=== PATIENT | female | born 1990 | race African-American/Black ===

== ENCOUNTER 2020-01-06 16:57 | Emergency (ER) | payer OTHER, SELFPAY ==
[2020-01-06 17:02] VITALS: BP 146/80; PULSE 92; RESP 12; TEMP 36.1; O2SAT 99
--- NOTE | 2020-01-06 17:07 | ED.EAR ---
HPI - Ear Problem General Chief complaint: Ear Stated complaint: ear ache Time Seen by Provider: 01/06/20 17:06 Source: patient Mode of arrival: ambulatory Limitations: no limitations History of Present Illness HPI Narrative: Patient is a 29-year-old previously healthy female who presents for evaluation of left ear pain. Patient reports pain over the past week which is dull, aching in nature with discharge coming from the ear. No bleeding coming from the ear. She reports subjective fever yesterday. No neck pain or vomiting. No redness of the ear or swelling of the face. Patient states she does not have any sore throat, runny nose, loss of sense of taste or smell. No other pain. Patient has not been taking any antibiotics. She does state that she put some tea tree oil into her ear last night without improvement in her symptoms. Related Data Allergies Allergy/AdvReac Type Severity Reaction Status Date / Time No Known Allergies Allergy Verified 01/06/20 17:04 Review of Systems Review of Systems: Narrative: CONSTITUTIONAL: Reports subjective fever and chills EYES: Denies visual changes, redness, or discharge. ENT: Denies rhinorrhea, congestion, sore throat, reports left ear pain CARDIOVASCULAR: Denies chest pain RESPIRATORY: Denies cough GASTROINTESTINAL: Denies abdominal pain GENITOURINARY: Denies dysuria or hematuria. SKIN: Denies rash or itching. NEUROLOGIC: Denies headache PMFSH Past Medical History Medical History (Updated 01/06/20 @ 17:27 by Sussy Barrett MD) No pertinent past medical history Social History Social History (Updated 01/06/20 @ 17:27 by Sussy Barrett MD) Smoking status: Current every day smoker Tobacco type: cigarettes Substance use: never Living arrangements: with family Gender identity (if verbalized by the patient): Female Exam Narrative: Exam Narrative: GENERAL: Awake, alert, conversant HEAD: Normocephalic, atraumatic. EYES: PERRLA and EOMI. ENT: Nares clear, no rhinorrhea or epistaxis. Mucous membranes moist. Uvula is midline. No erythema of the oropharynx. Tonsils appear normal without erythema or edema. Right tympanic membrane is normal with intact light reflex, no bulging. Left tympanic membrane with evidence of serous effusion, edema of the external ear canal, no evidence of perforation, no erythema of the pinna, no mastoid tenderness NECK: Supple. No cervical or anterior lymphadenopathy. CHEST: No respiratory distress, breathing even and non labored HEART: Regular rate, sinus rhythm ABDOMEN:Non distended, non tender EXTREMITIES: Normal range of motion. No edema. SKIN: Warm, dry, no rash. NEURO:No focal deficits. Alert and oriented x3 Course Vital Signs Vital signs: Vital Signs Temperature 36.1 C L 01/06/20 17: Pulse Rate 92 01/06/20 17:02 Respiratory Rate 12 01/06/20 17:02 Blood Pressure 146/80 H 01/06/20 17:02 Pulse Oximetry 99 01/06/20 17:02 Temperature 36.1 C L 01/06/20 17: Pulse Rate 92 01/06/20 17:02 Respiratory Rate 12 01/06/20 17:02 Blood Pressure 146/80 H 01/06/20 17:02 Pulse Oximetry 99 01/06/20 17:02 Medical Decision Making MDM Narrative Medical decision making narrative: Patient presented for evaluation of left ear pain. At the time of assessment, ABCs are intact and vital signs are stable. Patient does not have any signs or symptoms of mastoiditis, does have evidence of otitis media with serous effusion posterior to the tympanic membrane, as well as some edema of the external ear canal. Given both symptoms, will treat with oral antibiotics as well as otic suspension. Patient given short dose of pain medication to take at home. She was discharged home with PCP follow-up. Differential Diagnosis Differential Diagnosis: Otitis externa, otitis media Medical Records Medical records reviewed: Yes I reviewed the patient's medical records. Vital Signs Vital Signs: Vital Signs Temperature 36.1 C L
[2020-01-06 17:30] VITALS: BP 140/67; PULSE 80; RESP 12; O2SAT 99
== END 2020-01-06 17:30 | disposition home or self-care (01) ==
PROVIDERS: Emergency Provider Emergency Medicine; PCP Family Medicine
DX: H65.02 Acute serous otitis media, left ear (principal); H60.392 Other infective otitis externa, left ear; F17.210 Nicotine dependence, cigarettes, uncomplicated
CPT/HCPCS: 99283

== ENCOUNTER 2020-01-14 12:15 | Outpatient (NON) | payer OTHER, SELFPAY ==
[2020-01-14 23:24] LABS: SARS-CoV-2 RNA PCR Negative
== END 2020-01-14 12:16 ==
PROVIDERS: PCP Family Medicine; Visit Provider Family Medicine
DX: Z20.828 Contact with and (suspected) exposure to other viral communicable diseases (principal); R09.89 Other specified symptoms and signs involving the circulatory and respiratory systems
CPT/HCPCS: 87635; C9803; U0003

== ENCOUNTER 2020-08-11 10:41 | Emergency (ER) | payer OTHER, SELFPAY ==
--- NOTE | ~2020-08-11 | XR_ITS ---
EXAMINATION: XR foot RT min 3V DATE: 08/11/2020 11:05 INDICATION: Dorsal right foot pain TECHNIQUE: Dorsoplantar, two oblique and lateral views of the right foot were obtained. COMPARISON: None. FINDINGS: Alignment is normal. Normal variant triangular peripherally corticated accessory os supra naviculare. No fracture. Joint spaces are normal. Soft tissue swelling over the dorsolateral aspect of the midfo ot. IMPRESSION: 1. No osseous abnormality. Reviewed, dictated and finalized at location A. IMPRESSION: 1. No osseous abnormality.
--- NOTE | 2020-08-11 10:47 | ED.LOWEXIN ---
HPI - Extremity Injury (Lower) General Chief Complaint: Extremity Injury, Lower Stated Complaint: Right foot pain Time Seen by Provider: 08/11/20 10:47 Source: patient and RN notes reviewed Mode of arrival: ambulatory Limitations: no limitations History of Present Illness HPI Narrative: 29 yo female presents to the [facility] with Complaints of right dorsal foot pain since Saturday, 3 days ago. States that she was at a trampoline park when she landed wrong on her right foot and feels that she landed on the top of her foot with her foot pointed backwards. Bruising swelling and tenderness noted to the dorsal aspect. Has tried an Jose Angel wrap and rice therapy with minimal to no relief. Has full range of motion. Sensation intact in all 5 toes and lateral and medial aspect of the foot. Full range of motion of the ankle. Related Data Home Medications Medication Instructions Recorded Confirmed No Home Medications 08/11/20 08/11/20 Allergies Allergy/AdvReac Type Severity Reaction Status Date / Time No Known Allergies Allergy Verified 08/11/20 10:47 Review of Systems Review of Systems: All systems reviewed & are unremarkable except as noted in HPI and below Constitutional: Constitutional: Reports no additional constitutional complaints, Denies chills and Denies fever(s) Eyes: Eyes: Reports no additional eye complaints Cardiovascular: Cardiovascular: Reports no additional cardiovascular complaints Respiratory: Respiratory: Reports no additional respiratory complaints Gastrointestinal: Gastrointestinal: Reports no additional gastrointestinal complaints Musculoskeletal: Musculoskeletal: Reports as per HPI and Denies joint swelling Comments: Dorsal aspect right foot pain Integumentary/Breasts: Skin/Breast: Reports system reviewed and no additional complaints, except as docu and Denies rash Neurologic: Reports system reviewed and no additional complaints, except as documented, Denies dizziness, Denies headache(s), Denies focal weakness, Denies numbness and Denies weakness Psychiatric: Psychiatric: Reports no additional psychiatric complaints Allergic/Immunologic: Allergic/Immunologic: Reports no additional allergic/immunologic complaints [facility] Past Medical History Medical History (Updated 08/11/20 @ 11:20 by Essence Vieyra) No pertinent past medical history Social History Social History Smoking status: Current every day smoker Tobacco type: cigarettes Substance use: never Gender identity (if verbalized by the patient): Female Comments At the time of my signature, I reviewed and agree with the nursing past medical, surgical, social, and family history. There is no relevant family history pertinent to the patient complaint. Exam Const: General: healthy appearing, no acute distress and alert Nutritional Appearance: well nourished and obese Orientation/consciousness: patient oriented x3 Limitations: no limitations HENMT: Head: normal to inspection Neck: Neck: normal visual inspection, no lymphadenopathy and no meningeal signs Chest: Chest palpation & inspection: normal inspection of the chest Resp: Effort & Inspection: normal respiratory effort and no use of accessory muscles Auscultation: clear to auscultation bilaterally, no rales, no rhonchi and no wheezes Cardio: Rate: regular rate Other: Positive pedal pulses : General: Yes no CVA tenderness Back/Spine/Pelvis: Back: no CVA tenderness Skin: General skin exam: normal color Rashes: no rashes Wounds: no wounds Neuro: General: patient oriented x3, moves all extremities, no meningeal signs and no focal motor deficits Speech: normal speech Gait exam (Neuro): Normal gait present Extrem: General: normal to inspection Right lower extremity: foot Details: normal capillary refill, tenderness Location: of the dorsal foot (Midfoot), toes with normal ROM, no edema, ecchymosis (Dorsal aspect midfoot) an
[2020-08-11 10:49] VITALS: BP 116/72; PULSE 76; RESP 16; TEMP 36.4; O2SAT 100
== END 2020-08-11 11:24 | disposition home or self-care (01) ==
PROVIDERS: Emergency Provider Nurse Practitioner; PCP Family Medicine
DX: S93.601A Unspecified sprain of right foot, initial encounter (principal); X50.9XXA Other and unspecified overexertion or strenuous movements or postures, initial encounter; Y93.44 Activity, trampolining; F17.210 Nicotine dependence, cigarettes, uncomplicated
CPT/HCPCS: 73630; 99213; G0463

== ENCOUNTER 2020-10-08 12:44 | Emergency (ER) | payer OTHER, SELFPAY ==
--- NOTE | ~2020-10-08 | XR_ITS ---
XR lumbar spine 2-3V DATE: 10/08/2020 15:28 INDICATION: Lower back pain after basketball injury in 2012 TECHNIQUE: AP, lateral, coned lateral lumbosacral views COMPARISON: None FINDINGS: Normal alignment of lumbar spine. No fracture or bone destruction. The lumbar pedicles are intact. No spondylolisthesis. The lumbar and lumbosacral interspaces are well preserved. The sacroili ac joints appear normal. IMPRESSION: Normal examination of the lumbar spine Reviewed, dictated and finalized at location A.
[2020-10-08 12:50] VITALS: BP 141/98; PULSE 85; RESP 18; TEMP 36.5; O2SAT 100
[2020-10-08 13:01] VITALS: PULSE 88; RESP 20; O2SAT 100
--- NOTE | 2020-10-08 15:46 | ED.BACK ---
HPI - Back Pain/Injury General Chief Complaint: Back Pain/Injury <Zion Stone PA-C - Last Filed: 10/08/20 15:54> Stated Complaint: low back pain <SHIV Frye Last Filed: 10/08/20 15:54> Time Seen by Provider: 10/08/20 13:02 <SHIV Frye Last Filed: 10/08/20 15:54> Source: patient <SHIV Frye Last Filed: 10/08/20 15:54> Mode of arrival: ambulatory <SHIV Frye Last Filed: 10/08/20 15:54> Limitations: no limitations <SHIV Frye Last Filed: 10/08/20 15:54> History of Present Illness HPI Narrative: Patient presents with chief complaint of back pain that has been waxing waning in intensity since 2011. Patient states she did talk to her primary care regarding the issue and has been told that she may require physical therapy. Patient denies recent falls but states that the pain has increased and feels sharp in nature. She denies loss of bowel or bladder function or saddle paresthesias. Patient denies changes in bowel control. Patient reports that she feels a swelling over the area. She reports pain intensifies with any movement. Patient is able to ambulate. She presents also concerned with changes to a mole on the posterior aspect of her left thigh that she wants to have evaluated. <Zion Stone PA-C - Last Filed: 10/08/20 15:54> Related Data Allergies/Adverse Reactions: Allergies Allergy/AdvReac Type Severity Reaction Status Date / Time No Known Allergies Allergy Verified 10/08/20 13:03 <SHIV Frye Last Filed: 10/08/20 15:54> Review of Systems Review of Systems: CONSTITUTIONAL: Denies fever, chills, or sweats. EYES: Denies visual changes, redness, or discharge. ENT: Denies rhinorrhea, congestion, sore throat, or otalgia. CARDIOVASCULAR: Denies chest pain, palpitations, or edema. RESPIRATORY: Denies cough or dyspnea. GASTROINTESTINAL: Denies abdominal pain, nausea, vomiting, or diarrhea. GENITOURINARY: Denies dysuria or hematuria. SKIN: Reports skin changes denies rash or itching. MUSCULOSKELETAL: Reports back pain, denies joint pain, or myalgia. NEUROLOGIC: Denies headache, numbness, dizziness, or weakness. PSYCHIATRIC: Denies anxiety or depression. <Zion Stone PA-C - Last Filed: 10/08/20 15:54> PMFSH Past Medical History Medical History: Medical History (Updated 10/08/20 @ 15:51 by Zion Stone PA-C) No pertinent past medical history <Zion Stone PA-C - Last Filed: 10/08/20 15:54> Social History Social History: Social History Smoking status: Current every day smoker Tobacco type: cigarettes Substance use: never Gender identity (if verbalized by the patient): Female <Zion Stone PA-C - Last Filed: 10/08/20 15:54> Exam Narrative: GENERAL: Well-appearing, well-nourished, and in no acute distress. Obese HEAD: Normocephalic, atraumatic. EYES: PERRLA and EOMI. NECK: Supple. Range of motion intact CHEST: Clear to auscultation. No respiratory distress. No wheezes rales or rhonchi HEART: Regular rate and rhythm.Normal peripheral pulses. BACK: Patient reports palpation to lower lumbar spine. Patient reports pain with flexion and rotation. Sensation and range of motion intact in lower extremities. Weakness not appreciated. EXTREMITIES: Normal range of motion. No edema. SKIN: Brown skin growths of posterior aspect of patient's left thigh. There is no bleeding or drainage. It is rough in texture and raised. Warm, dry, no rash. NEURO: No focal deficits. Alert and oriented x3. PSYCH: Normal mood and affect. <Zion Stone PA-C - Last Filed: 10/08/20 15:54> Course Vital Signs Vital signs: Vital Signs Temperature 97.7 F 10/08/20 12:50 Pulse Rate 85 10/08/20 12:50 Respiratory Rate 18 10/08/20 12:50 Blood Pressure 141/98 H 10/08/20 12:50 Pulse Oximetry 100 10/08/20 12:50 Temperatu
[2020-10-08 16:05] VITALS: BP 132/80; PULSE 80; RESP 20; TEMP 36.8; O2SAT 100
== END 2020-10-08 16:05 | disposition home or self-care (01) ==
PROVIDERS: Emergency Provider General Practice; PCP Family Medicine
DX: S39.012A Strain of muscle, fascia and tendon of lower back, initial encounter (principal); R23.9 Unspecified skin changes; F17.210 Nicotine dependence, cigarettes, uncomplicated; X58.XXXA Exposure to other specified factors, initial encounter
CPT/HCPCS: 72100; 81025; 99283

== ENCOUNTER 2021-03-02 08:25 | Emergency (ER) | payer OTHER, SELFPAY ==
[2021-03-02 08:35] VITALS: BP 116/69; PULSE 70; RESP 16; TEMP 36.2; O2SAT 99
--- NOTE | 2021-03-02 09:17 | ED.FEMALEGU ---
HPI - Female Genitourinary General Chief complaint: Urogenital-Female Stated complaint: irregular cycle Time Seen by Provider: 03/02/21 08:53 Source: patient and RN notes reviewed Mode of arrival: ambulatory Limitations: no limitations History of Present Illness HPI Narrative: Patient presents today complaining of an extended menstrual period. She has had some menstrual bleeding since 02/11/2021. States the bleeding waxes and wanes, and almost disappeared on 02/28/2021, then returned again. States she changes her thin pad every 2 hours or so. She occasionally has clots that are quarter size. Denies dizziness, lightheadedness. Reports she does have some cramping associated with her bleeding. States that her primary care provider just left the office permanently and she does not currently have an HAIR BOILER OPERATOR. No chance of , as she is homosexual. States she does have a known vaginal cyst that she needs to get surgically removed. MD elicited complaint: vaginal bleeding Related Data Allergies Allergy/AdvReac Type Severity Reaction Status Date / Time No Known Allergies Allergy Verified 03/02/21 09:01 Review of Systems Review of Systems: CONSTITUTIONAL: Denies body aches, fever, chills, or sweats. EYES: Denies visual changes, redness, or discharge. ENT: Denies rhinorrhea, congestion, sore throat, or otalgia. CARDIOVASCULAR: Denies chest pain, palpitations, or edema. RESPIRATORY: Denies cough or dyspnea. GASTROINTESTINAL: Denies abdominal pain, nausea, vomiting, or diarrhea. GENITOURINARY: Denies dysuria or hematuria.+ Vaginal bleeding SKIN: Denies rash, itching, or wounds. MUSCULOSKELETAL: Denies back pain, joint pain, or myalgia. NEUROLOGIC: Denies headache, numbness, tingling, or weakness. PSYCH: Denies depression or anxiety. [facility] Past Medical History Medical History No pertinent past medical history Social History Social History Smoking status: Current every day smoker Tobacco type: cigarettes Substance use: never Gender identity (if verbalized by the patient): Female Comments At time of signature, I have reviewed and agree with nursing past medical, surgical, social and family history unless otherwise noted. Please see nursing chart for further information. There is no relevant family history pertinent to the presenting complaint Exam Narrative: GENERAL: Well-appearing, well-nourished, and in no acute distress. HEAD: Normocephalic, atraumatic. EYES: EOMI. PERRL. No redness or drainage. Conjunctivae normal. ENT: Mucous membranes pink and moist. Gingiva pink. NECK: Normal AROM. Supple. No lymphadenopathy. CHEST: No respiratory distress. : deferred. EXTREMITIES: Normal range of motion. No edema. SKIN: Warm, dry, no rash. Capillary refill normal. Normal skin turgor. NEURO: No focal deficits. Alert and oriented x3. Gait steady. PSYCH: Normal affect. No signs of depression or anxiety. Course Course Emergency Course: Discussed with patient that she needs to follow-up with an HAIR BOILER OPERATOR. At this time I do not believe she needs to go to the ER for evaluation, but anticipatory guidance has been given. Contact information for on-call HAIR BOILER OPERATOR has been given. Level of Care: Express Care Visit Vital Signs Vital signs: Vital Signs Temperature 97.2 F L 03/02/21 08:35 Pulse Rate 70 03/02/21 08:35 Respiratory Rate 16 03/02/21 08:35 Blood Pressure 116/69 03/02/21 08:35 Pulse Oximetry 99 03/02/21 08:35 Temperature 97.2 F L 03/02/21 08:35 Pulse Rate 70 03/02/21 08:35 Respiratory Rate 16 03/02/21 08:35 Blood Pressure 116/69 03/02/21 08:35 Pulse Oximetry 99 03/02/21 08:35 Reviewed MDM - Female Genitourinary Differential Diagnosis Differential diagnosis: Likely other (Dysfunctional uterine bleeding) Critical Care Time Critical Care Time Critical Care
== END 2021-03-02 09:30 | disposition home or self-care (01) ==
PROVIDERS: Emergency Provider Nurse Practitioner
DX: N92.6 Irregular menstruation, unspecified (principal); F17.210 Nicotine dependence, cigarettes, uncomplicated
CPT/HCPCS: 99211; G0463

== ENCOUNTER 2021-03-10 06:54 | Emergency (ER) | payer OTHER, SELFPAY ==
--- NOTE | ~2021-03-10 | US_ITS ---
EXAMINATION: US right upper quadrant EXAM DATE: 03/10/2021 08:11 INDICATION: RUQ pain MID ABD PAIN . TECHNIQUE: Multiple grayscale and Doppler images of the abdomen right upper quadrant were obtained (b y a technologist who performed the scan) and subsequently reviewed. There is no prior study for lamont cabrera. FINDINGS: The pancreatic head and body are normal in appearance. The pancreatic tail is not visualized. The l iver has normal echogenicity and contour. There are no focal liver lesions identified. There is no evidence of intrahepatic biliary duct dilation. Portal venous flow was seen in the hepatopedal, nor mal direction and has normal Doppler waveform. No right-sided hydronephrosis. Common bile duct measures 5 mm, which is normal. The gallbladder wall is normal in thickness, with ex pected amount of distention. No sonographic evidence of pericholecystic fluid. Single gallstone stephan ntified measuring about 7 mm in size Technologist performing exam reports patient did not demonstrat e sonographic Pryor's sign. Please note that this sign is less reliable in patients who have receiv ed pain medication. IMPRESSION: Cholelithiasis. Reviewed, dictated and finalized at location A. 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
--- NOTE | ~2021-03-10 | US_ITS ---
EXAMINATION: US pelvic complete w TV EXAM DATE: 03/10/2021 08:15 INDICATION: Cramping/bleeding. Vaginal bleeding. TECHNIQUE: Pelvic transabdominal and transvaginal sonogram was performed. There are multiple graysca le and Doppler images available for interpretation. There is no prior study for comparison. FINDINGS: Uterus measures 10.7 x 8.0 x 6.8 cm, with at least 2 large fibroids identified measuring 7 and 6 cm. Endometrial stripe measures 10 mm, within normal limits. There is no free pelvic fluid. Right adnexa: The ovary measures 3.4 x 1.4 x 1.4 cm and is morphologically normal. Ovarian vascular f low confirmed. Left adnexa: The ovary measures 3.1 x 2.4 x 2.1 cm and is morphologically normal. Ovarian vascular fl ow confirmed. IMPRESSION: Large fibroids. Reviewed, dictated and finalized at location A. 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
[2021-03-10 06:58] VITALS: BP 136/63; PULSE 92; RESP 18; TEMP 36.3; O2SAT 100
[2021-03-10 07:48] LABS: Basophils Absolute Auto 0.1 K/mm3 (0.0-0.1); Basophils Percent Auto 0.7 % (0.2-1.2); Eosinophils Absolute Auto 0.2 K/mm3 (0-0.3); Eosinophils Percent Auto 2.1 % (0-4.4); Hemoglobin 9.8 g/dL (12.0-15.0); Immature Granulocyte Absolute 0.01 K/mm3 (0.00-0.031); Immature Granulocyte Percent A 0.1 % (0-0.5); Lymphocytes Absolute Auto 2.33 K/mm3 (0.9-3.2); Lymphocytes Percent Auto 32.5 % (18.3-44.2); Mean Corpuscular HGB Conc 32.7 g/dl (32-36); Mean Corpuscular Hemoglobin 30.7 pg (26-34); Mean Platelet Volume 10.2 fl (7.4-10.4); Monocytes Absolute Auto 0.6 K/mm3 (0.1-0.6); Monocytes Percent Auto 7.9 % (2.6-8.5); Neutrophils Absolute Auto 4.1 K/mm3 (1.3-6.7); Neutrophils Percent Auto 56.7 % (45.5-73.1); Platelet Count Result 345 k/mm3 (150-375); Red Blood Count 3.19 M/mm3 (4.2-5.4); Red Cell Distribution Width 13.1 % (11.5-14.5); White Blood Count 7.2 K/mm3 (4.5-10.0)
[2021-03-10 07:55] LABS: Add Urine Microscopic? YES; Appearance Urine Cloudy (Clear); Bilirubin Urine Negative (Negative); Blood Urine 3+ (Negative); Color Urine Red (Yellow); Glucose Urine UA Negative (Negative); Ketones Urine Negative (Negative); Leukocyte Esterase Ur Negative LEU/UL (Negative); Mucus Urine Rare /lpf; Nitrate Urine Negative (Negative); Protein Urine 1+ mg/dL (Negative); RBC Urine >75 /hpf (0-2); Specific Grav Ur 1.015 (1.001-1.035); Squamous Epithelial Cell Urine Rare /hpf (Few); Urobilinogen Urine Negative mg/dL (<2.0)
--- NOTE | 2021-03-10 07:58 | ED.FEMALEGU ---
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 Reports it waxes and wanes in intensity. She is going through a pad every hour to 2 hours. Ongoing for 28 days. She reports she was seen in urgent care and referred to a business analysis professional but they did not accept her insurance and she has not tried to contact any other business analysis professional. She reports occasionally she will get dizzy while at work. No loss of consciousness. Denies urinary frequency urgency or dysuria. No vaginal discharge or pelvic pain. Just cramping that comes with it.. Patient also reports that she is having some upper abdominal discomfort that she is concerned could be related to abdominal mesh. Its not associate with eating or drinking nor is it associated with her menstrual cycle. She is found no alleviating factors. Worsens with palpation and movement. Related Data Allergies Allergy/AdvReac Type Severity Reaction Status Date / Time No Known Allergies Allergy Verified 03/02/21 09:01 Review of Systems Review of Systems: All systems reviewed & are unremarkable except as noted in HPI and below Constitutional: Constitutional: Denies chills and Denies fatigue ENT: Denies nasal congestion and Denies sore throat Cardiovascular: Cardiovascular: Denies chest pain, Denies rapid heart rate and Denies radiating jaw, neck or arm pain Respiratory: Respiratory: Denies cough Gastrointestinal: Gastrointestinal: Reports abdominal pain, Denies diarrhea, Denies nausea and Denies vomiting Genitourinary: Genitourinary: Reports abnormal vaginal bleeding, Denies hematuria, Denies nocturia, Denies dysuria and Denies vaginal discharge Neurologic: Reports dizziness, Reports headache(s), Denies focal weakness and Denies numbness PMFSH Past Medical History Medical History (Updated 03/10/21 @ 09:04 by Edgar Long MD) No pertinent past medical history Surgical History Surgical History (Updated 03/10/21 @ 08:02 by Edgar Long MD) H/O hernia repair Social History Social History Smoking status: Current every day smoker Tobacco type: cigarettes Substance use: never Gender identity (if verbalized by the patient): Female Exam Narrative: GENERAL: Well-appearing, well-nourished, and in no acute distress. HEAD: Normocephalic, atraumatic. CHEST: Clear to auscultation. No respiratory distress. HEART: Regular rate and rhythm. N Normal peripheral pulses. ABDOMEN: Soft, mild epigastric and right upper quadrant tenderness, nondistended, normal active bowel sounds. : Normal external genitalia. Cervix with a abnormal cystic structure that is 3 cm x 2 cm protruding. No hemorrhage. No discharge. EXTREMITIES: Normal range of motion. No edema. SKIN: Warm, dry, no rash. NEURO: Alert and oriented x3. PSYCH: Normal mood and affect. Course Course Emergency Course: Patient informed of results. Will start on iron. Recommend follow-up with gynecology for further evaluation. Educated on fibroids and possibility of needing surgery. Patient verbalized understanding. Also discussed low-fat diet given gallstones. No signs of cholecystitis Vital Signs Vital signs: Vital Signs Temperature 97.4 F L 03/10/21 06:58 Pulse Rate 92 03/10/21 06:58 Respiratory Rate 18 03/10/21 06:58 Blood Pressure 136/63 03/10/21 06:58 Pulse Oximetry 100 03/10/21 06:58 Temperature 97.4 F L 03/10/21 06:58 Pulse Rate 73 03/10/21 08:20 Respiratory Rate 18 03/10/21 06:58 Blood Pressure 126/76 03/10/21 08:20 Pulse Oximetry 100 03/10/21 06:58 MDM - Female Genitourinary Lab Data Result diagrams: 03/10/21 07:36 03/10/21 07:36 Labs: Lab Results 03/10/21 03/10/21 03/10/21 Range/
[2021-03-10 08:11] LABS: Alanine Aminotransferase 11 U/L (4-35); Albumin Level 3.7 g/dL (3.5-5.1); Alkaline Phosphatase 51 U/L (38-126); Anion Gap 5 mmol/L (8-16); Aspartate Amino Transferase 21 U/L (14-36); Bilirubin,Total 0.3 mg/dL (0.2-1.3); Blood Urea Nitrogen 12 mg/dL (7-17); Calcium 8.3 mg/dL (8.4-10.2); Carbon Dioxide 26 mmol/L (22-30); Chloride 107 mmol/L (98-107); Estimated CRCL calculation 119 ml/min; Estimated Glomerular Filt Rate > 60; Glucose 105 mg/dL (65-110); Lipase 41 U/L (23-300); Potassium 4.1 mmol/L (3.4-5.0); Sodium 138 mmol/L (137-145)
[2021-03-10 08:18] VITALS: BP 107/61; BP 127/81; PULSE 69; PULSE 84
[2021-03-10 08:20] VITALS: BP 126/76; PULSE 73
[2021-03-10] MEDS: KETOROLAC 30 MG/ML VIAL (*BKC) IV PUSH (08:23)
--- NOTE | 2021-03-10 08:46 | PC.NURSE ---
Pelvic set up completed, physician completed pelvic assessment, RN present during assessment, pt tolerated well.
[2021-03-10 09:18] VITALS: BP 103/72; PULSE 76; RESP 16; O2SAT 100
== END 2021-03-10 09:19 | disposition home or self-care (01) ==
PROVIDERS: Emergency Provider Emergency Medicine
DX: D25.9 Leiomyoma of uterus, unspecified (principal); D64.9 Anemia, unspecified; K80.20 Calculus of gallbladder without cholecystitis without obstruction; F17.210 Nicotine dependence, cigarettes, uncomplicated
CPT/HCPCS: 36415; 76705; 76830; 76856; 80053; 81001; 81025; 83690; 85025; 96374; 99284; J1885

== ENCOUNTER 2021-06-15 19:54 | Emergency (ER) | payer OTHER, SELFPAY ==
--- NOTE | 2021-06-15 19:56 | ED.ABDPAIN ---
HPI - Abdominal Pain General Chief Complaint: Abdominal Pain Stated Complaint: Abdominal Pain Time Seen by Provider: 06/15/21 19:56 Source: patient Mode of arrival: ambulatory Limitations: no limitations History of Present Illness HPI narrative: 30-year-old female presents with complaint of abdominal pain, nausea vomiting that started after eating [place] fried [place] last night. Reports that she was sick all night and is now feeling better. Is here for a work note. She has no new urinary symptoms. Afebrile. Has been able to keep down water. All systems reviewed and negative except as noted above. Related Data Allergies Allergy/AdvReac Type Severity Reaction Status Date / Time No Known Allergies Allergy Verified 06/15/21 19:56 Review of Systems Review of Systems: CONSTITUTIONAL: Denies fever, chills, or sweats. EYES: Denies visual changes, redness, or discharge. ENT: Denies rhinorrhea, congestion, sore throat, or otalgia. CARDIOVASCULAR: Denies chest pain, palpitations, or edema. RESPIRATORY: Denies cough or dyspnea. GASTROINTESTINAL: Reports abdominal pain, nausea, vomiting. Denies diarrhea. GENITOURINARY: Denies dysuria or hematuria. SKIN: Denies rash or itching. MUSCULOSKELETAL: Denies back pain, joint pain, or myalgia. NEUROLOGIC: Denies headache, numbness, or weakness. PSYCHIATRIC: Denies anxiety or depression. All other systems reviewed are negative, except as documented in HPI. [facility] Past Medical History Medical History (Updated 06/16/21 @ 00:00 by Juni Farias) No pertinent past medical history Surgical History Surgical History (Updated 03/10/21 @ 08:02 by Edgar Long MD) H/O hernia repair Social History Social History Smoking status: Current every day smoker Tobacco type: cigarettes Substance use: never Gender identity (if verbalized by the patient): Female Comments At time of signature, agree with nursing past medical, surgical, social and family history. There is no relevant family history pertinent to the presenting complaint. Exam Narrative: GENERAL: This is a well-nourished, well-developed patient, in no apparent distress. HEAD: normocephalic, atraumatic. EYES: PERRL. Sclera clear/white. Vision is grossly intact. EARS: External ears normal NOSE: External nose normal NECK: Neck supple, non-tender without lymphadenopathy, masses or thyromegaly. CARDIOVASCULAR: Regular rate and rhythm without murmurs, gallops, or rubs. RESPIRATORY: Clear to auscultation. Breath sounds equal bilaterally. No wheezes, rales, or rhonchi. GASTROINTESTINAL: Abdomen soft, non-tender, nondistended. Bowel sounds are active. No hepato-splenomegaly, or palpable masses. No guarding. SKIN: warm, Dry, intact with no suspicious lesions or rash, good texture and turgor. NEURO: awake, alert, and oriented to person, place and time. There were no obvious focal neurologic abnormalities. EXTREMITIES: Normal range of motion to all extremities. Course Course Level of Care: Express Care Visit Vital Signs Vital signs: Vital Signs Temperature 37.2 C 06/15/21 20:03 Pulse Rate 69 06/15/21 20:03 Respiratory Rate 16 06/15/21 20:03 Blood Pressure 120/81 06/15/21 20:03 Temperature 37.2 C 06/15/21 20:03 Pulse Rate 69 06/15/21 20:03 Respiratory Rate 16 06/15/21 20:03 Blood Pressure 120/81 06/15/21 20:03 Reviewed MDM - Abdominal Pain MDM Narrative Medical decision making narrative: No abdominal tenderness. Nausea and vomiting has resolved. Patient thought that she had food poisoning from [place] but also states that she had gallstones on ultrasound that she had in ER several months ago. Was not aware that fried foods would upset her gallbladder. Patient given discharge instructions for diet changes to make for gallstones. Patient is aware of diagnosis, understands and agrees to treatment plan. Ant
[2021-06-15 20:03] VITALS: BP 120/81; PULSE 69; RESP 16; TEMP 37.2
== END 2021-06-15 20:13 | disposition home or self-care (01) ==
PROVIDERS: Emergency Provider Nurse Practitioner Family
DX: K82.9 Disease of gallbladder, unspecified (principal); F17.200 Nicotine dependence, unspecified, uncomplicated
CPT/HCPCS: 99213; G0463

== ENCOUNTER 2021-07-22 13:20 | Emergency (ER) | payer OTHER, SELFPAY ==
[2021-07-22 13:25] VITALS: BP 121/75; PULSE 79; RESP 18; TEMP 37.7; O2SAT 100
--- NOTE | 2021-07-22 13:26 | ED.ABDPAIN ---
HPI - Abdominal Pain General Chief Complaint: Abdominal Pain Stated Complaint: Abdominal Pain Time Seen by Provider: 07/22/21 13:26 Source: patient, RN notes reviewed and old records reviewed Mode of arrival: ambulatory Limitations: no limitations History of Present Illness HPI narrative: 30-year-old female presents to the [facility] with complaints of generalized abdominal pain for 6 days. Patient has a history of fibroids and gallstones. Was evaluated in February and diagnosed with gallstones. Patient reports trying to work with her primary care provider to get the fibroids and the gallstones taken care of. Next appointment she has is in September. Reports urinary frequency but states that is due to fibroids. Last bowel movement was this morning which she reports is normal Denies any pain currently no nausea or vomiting currently. Requesting a work note Related Data Home Medications Medication Instructions Recorded Confirmed drospirenone (contraceptive) 4 mg 1 tablet PO DAILY 07/22/21 07/22/21 (28) tablet (Slynd) Allergies Allergy/AdvReac Type Severity Reaction Status Date / Time No Known Allergies Allergy Verified 07/22/21 13:22 Review of Systems Review of Systems: All systems reviewed & are unremarkable except as noted in HPI and below Constitutional: Constitutional: Reports no additional constitutional complaints, Denies chills and Denies fever(s) Eyes: Eyes: Reports no additional eye complaints ENT: Reports system reviewed and no additional complaints, except as documented Cardiovascular: Cardiovascular: Reports no additional cardiovascular complaints Respiratory: Respiratory: Reports no additional respiratory complaints Gastrointestinal: Gastrointestinal: Reports as per HPI, Reports abdominal pain, Denies bloating, Denies constipation, Denies heartburn, Denies diarrhea, Denies nausea and Denies vomiting Musculoskeletal: Musculoskeletal: Reports no additional musculoskeletal complaints Integumentary/Breasts: Skin/Breast: Reports system reviewed and no additional complaints, except as docu Neurologic: Reports system reviewed and no additional complaints, except as documented Psychiatric: Psychiatric: Reports no additional psychiatric complaints Allergic/Immunologic: Allergic/Immunologic: Reports no additional allergic/immunologic complaints PMF Past Medical History Medical History (Updated 07/22/21 @ 13:49 by Essence Vieyra APRN) No pertinent past medical history Surgical History Surgical History H/O hernia repair Social History Social History (Reviewed 07/22/21 @ 16:34 by AMANDA Leal Smoking status: Current every day smoker Tobacco type: cigarettes Substance use: never Gender identity (if verbalized by the patient): Female Comments At the time of my signature, I reviewed and agree with the nursing past medical, surgical, social, and family history. There is no relevant family history pertinent to the patient complaint. Exam Const: General: healthy appearing, no acute distress and alert Nutritional Appearance: well nourished and obese Orientation/consciousness: patient oriented x3 Limitations: no limitations HENMT: Head: normal to inspection Ears: external ears normal Eyes: General: appearance normal, both eyes and all related structures Pupils: Equal, round and reactive pupils present Neck: Neck: normal visual inspection, no lymphadenopathy and no meningeal signs Chest: Chest palpation & inspection: normal inspection of the chest Resp: Effort & Inspection: normal respiratory effort and no use of accessory muscles Auscultation: clear to auscultation bilaterally, no crackles, no rales, no rhonchi and no wheezes Cardio: Rate: regular rate Rhythm: regular rhythm GI: GI Palp: Yes Soft to palpation, Yes Tenderness to palpation present (GI) (Generalized), No Guarding due to palpation present (GI), No
== END 2021-07-22 13:52 | disposition home or self-care (01) ==
PROVIDERS: Emergency Provider Nurse Practitioner
DX: R10.84 Generalized abdominal pain (principal); Z87.19 Personal history of other diseases of the digestive system; Z87.42 Personal history of other diseases of the female genital tract; F17.210 Nicotine dependence, cigarettes, uncomplicated
CPT/HCPCS: 81003; 99212; G0463

== ENCOUNTER 2021-08-01 18:30 | Emergency (ER) | payer OTHER, SELFPAY ==
[2021-08-01 18:38] VITALS: BP 124/78; PULSE 87; RESP 16; TEMP 36.3; O2SAT 100
--- NOTE | 2021-08-01 18:46 | ED.FEVER ---
HPI - Fever General Chief Complaint: Upper Respiratory Infection Stated Complaint: Fever Time Seen by Provider: 08/01/21 18:46 Source: patient and RN notes reviewed Mode of arrival: ambulatory Limitations: no limitations History of Present Illness HPI Narrative: 30-year-old female presents to the [facility] with complaints of a fever she believes of 101. Has had sinus symptoms for the last 4 days. States that she is feeling better today. Has taken Tylenol with some relief. Requesting a work note Related Data Home Medications Medication Instructions Recorded Confirmed drospirenone (contraceptive) 4 mg 1 tablet PO DAILY 08/01/21 08/01/21 (28) tablet (Slynd) Allergies Allergy/AdvReac Type Severity Reaction Status Date / Time No Known Allergies Allergy Verified 08/01/21 19:06 Review of Systems Review of Systems: All systems reviewed & are unremarkable except as noted in HPI and below Constitutional: Constitutional: Reports no additional constitutional complaints, Denies chills and Denies fever(s) Eyes: Eyes: Reports no additional eye complaints ENT: Reports as per HPI and Reports nasal congestion Cardiovascular: Cardiovascular: Reports no additional cardiovascular complaints Respiratory: Respiratory: Reports no additional respiratory complaints Gastrointestinal: Gastrointestinal: Reports no additional gastrointestinal complaints Musculoskeletal: Musculoskeletal: Reports no additional musculoskeletal complaints Integumentary/Breasts: Skin/Breast: Reports system reviewed and no additional complaints, except as docu Neurologic: Reports system reviewed and no additional complaints, except as documented Psychiatric: Psychiatric: Reports no additional psychiatric complaints Allergic/Immunologic: Allergic/Immunologic: Reports no additional allergic/immunologic complaints PMFSH Past Medical History Medical History (Updated 08/01/21 @ 19:28 by Essence Vieyra APRN) No pertinent past medical history Surgical History Surgical History H/O hernia repair Social History Social History Smoking status: Current every day smoker Tobacco type: cigarettes Substance use: never Gender identity (if verbalized by the patient): Female Comments At the time of my signature, I reviewed and agree with the nursing past medical, surgical, social, and family history. There is no relevant family history pertinent to the patient complaint. Exam Const: General: healthy appearing, no acute distress and alert Nutritional Appearance: well nourished and obese Orientation/consciousness: patient oriented x3 Limitations: no limitations HENMT: Head: normal to inspection Ears: external ears normal General nose exam: Normal external nose present and Nasal discharge present clear Mouth: Yes Normal oral and palatal mucosa present Throat: posterior oropharynx normal Eyes: General: appearance normal, both eyes and all related structures Pupils: Equal, round and reactive pupils present Neck: Neck: normal visual inspection, no lymphadenopathy and no meningeal signs Chest: Chest palpation & inspection: normal inspection of the chest Resp: Effort & Inspection: normal respiratory effort and no use of accessory muscles Auscultation: clear to auscultation bilaterally, no crackles, no rales, no rhonchi and no wheezes Cardio: Rate: regular rate Rhythm: regular rhythm GI: GI Palp: Yes Soft to palpation and No Tenderness to palpation present (GI) Back/Spine/Pelvis: Cervical Spine: normal cervical lordosis Thoracic/Lumbar Spine: thoracic and lumbar spine normal to inspection Skin: General skin exam: normal color Rashes: no rashes Wounds: no wounds Neuro: General: patient oriented x3, moves all extremities, no meningeal signs and no focal motor deficits Cranial nerves: Yes Equal, round and reactive pupils present
== END 2021-08-01 19:26 | disposition home or self-care (01) ==
PROVIDERS: Emergency Provider Nurse Practitioner
DX: J06.9 Acute upper respiratory infection, unspecified (principal); Z20.822 Contact with and (suspected) exposure to COVID-19; F17.210 Nicotine dependence, cigarettes, uncomplicated
CPT/HCPCS: 87426; 87804; 99212; C9803; G0463

== ENCOUNTER 2021-10-31 12:20 | Emergency (ER) | payer OTHER, SELFPAY ==
[2021-10-31 12:33] VITALS: BP 117/74; PULSE 85; RESP 16; TEMP 36.6; O2SAT 98
--- NOTE | 2021-10-31 12:51 | ED.EYEPROB ---
HPI - Eye Problem General Chief complaint: Eye Problems Stated complaint: left eye pain Time Seen by Provider: 10/31/21 12:52 Source: patient and RN notes reviewed Mode of arrival: ambulatory Limitations: no limitations History of Present Illness HPI Narrative: 31-year-old female presents to the [facility] after getting something splashed in her eye approximately 9 AM yesterday. States that she did flush it out at work. Woke up this morning was not able to go to work because she was having left eye discomfort. On exam states the pain is gone, no blurry vision or change in vision. States she feels like there is something still in it. Requesting a work note Related Data Home Medications Medication Instructions Recorded Confirmed drospirenone (contraceptive) 4 mg 1 tablet PO DAILY 08/01/21 08/01/21 (28) tablet (Slynd) ferrous sulfate 325 mg (65 mg mg 10/31/21 iron) tablet Allergies Allergy/AdvReac Type Severity Reaction Status Date / Time No Known Allergies Allergy Verified 10/31/21 13:16 Review of Systems Review of Systems: All systems reviewed & are unremarkable except as noted in HPI and below Constitutional: Constitutional: Reports no additional constitutional complaints, Denies chills and Denies fever(s) Eyes: Eyes: Reports as per HPI ENT: Reports system reviewed and no additional complaints, except as documented Cardiovascular: Cardiovascular: Reports no additional cardiovascular complaints Respiratory: Respiratory: Reports no additional respiratory complaints Gastrointestinal: Gastrointestinal: Reports no additional gastrointestinal complaints Musculoskeletal: Musculoskeletal: Reports no additional musculoskeletal complaints Integumentary/Breasts: Skin/Breast: Reports system reviewed and no additional complaints, except as docu Neurologic: Reports system reviewed and no additional complaints, except as documented Psychiatric: Psychiatric: Reports no additional psychiatric complaints Allergic/Immunologic: Allergic/Immunologic: Reports no additional allergic/immunologic complaints PMFSH Past Medical History Medical History No pertinent past medical history Surgical History Surgical History H/O hernia repair Social History Social History Smoking status: Current every day smoker Tobacco type: cigarettes Substance use: never Gender identity (if verbalized by the patient): Female Comments At the time of my signature, I reviewed and agree with the nursing past medical, surgical, social, and family history. There is no relevant family history pertinent to the patient complaint. Exam Const: General: healthy appearing, no acute distress and alert Nutritional Appearance: well nourished Orientation/consciousness: patient oriented x3 Limitations: no limitations HENMT: Head: normal to inspection Ears: external ears normal, TM's normal bilaterally and EAC's normal General nose exam: Normal external nose present and Normal nares present Eyes: General: appearance normal, both eyes and all related structures Visual Rosenbaum: normal visual rosenbaum by confrontation Alignment and Position: alignment normal Eyelids: eyelids normal Conjunctivae: conjunctivae normal Sclera: sclerae normal Cornea: corneas normal and fluorescein used Pupils: Equal, round and reactive pupils present, Pupils normal by confrontation and Pupil accommodation reflex normal EOM: EOMs intact bilaterally Neck: Neck: normal visual inspection, no lymphadenopathy and no meningeal signs Chest: Chest palpation & inspection: normal inspection of the chest Resp: Effort & Inspection: normal respiratory effort and no use of accessory muscles Auscultation: clear to auscultation bilaterally, no crackles, no rales, no rhonchi and no wheezes Cardio: Rate: regular
--- NOTE | 2021-10-31 13:15 | PC.NURSE ---
eye set up at bedside.
== END 2021-10-31 13:33 | disposition home or self-care (01) ==
PROVIDERS: Emergency Provider Nurse Practitioner
DX: H57.12 Ocular pain, left eye (principal); F17.210 Nicotine dependence, cigarettes, uncomplicated
CPT/HCPCS: 99213; A9270; G0463

== ENCOUNTER 2021-12-09 13:26 | Emergency (ER) | payer OTHER, SELFPAY ==
[2021-12-09 13:53] VITALS: BP 123/79; PULSE 79; RESP 18; TEMP 36.7; O2SAT 100
--- NOTE | 2021-12-09 15:01 | ED.URI ---
HPI - URI/Sore Throat General Chief Complaint: Upper Respiratory Infection Stated Complaint: nausea, vomiting, diarrhea Time Seen by Provider: 12/09/21 14:00 Source: patient Mode of arrival: ambulatory Limitations: no limitations History of Present Illness HPI Narrative: Ms. Barlow is a 31-year-old female patient presenting to the clinic today with complaints of body aches, nausea, and diarrhea. She reports that she has also felt feverish over the last few days. States that her symptoms started approximately 2 weeks ago. States that symptoms started out with some diarrhea after eating a burger from [employer]. She reports that she had some green stool at that time. She denied any fevers or chills at that time but has had diarrhea off and on for 2 weeks. She reports she is here today because she is experiencing some nausea and is requesting a work note as she had to take off the last 2 days. States the diarrhea has improved MD elicited complaint: other ( nausea, vomiting, diarrhea) Related Data Home Medications Medication Instructions Recorded Confirmed ferrous sulfate 325 mg (65 mg mg 10/31/21 iron) tablet Allergies Allergy/AdvReac Type Severity Reaction Status Date / Time No Known Allergies Allergy Verified 10/31/21 13:16 Review of Systems Review of Systems: Pertinent positives per HPI. Patient denies any, rash, headache, visual changes, dizziness, cough, shortness of breath, chest pain, palpitations, constipation, abdominal pain, or any urinary issues. [facility] Past Medical History Medical History No pertinent past medical history Surgical History Surgical History H/O hernia repair Social History Social History Smoking status: Current every day smoker Tobacco type: cigarettes Substance use: never Gender identity (if verbalized by the patient): Female Comments At the time of my signature, I reviewed and agree with the nursing past medical, surgical, social, and family history. There is no relevant family history pertinent to the patient complaint. Exam Narrative: General: Well-developed, Obese, in no apparent distress Head: Normocephalic, atraumatic Eyes: Pupils equally round and reactive to light bilaterally, EOM intact, sclera and conjunctive clear, no discharge, lids normal Ears: TMs intact and clear, ear canals clear, no drainage, grossly hearing normal. Nose: Nares patent, no discharge, no inflammation, no sinus tenderness. Mouth: Oral pharynx without lesions or masses, good dentition, MMM. Neck: Supple, trachea midline, no enlargement of anterior or posterior cervical nodes, no thyroid masses or goiter palpable. Cardio: Regular rate and rhythm, s1 and s2 normal, no murmur appreciated. Resp: Clear to auscultation bilaterally, no rhonchi, rales, wheezing or rubs Abdomen: Soft, pliable, nontender to palpation, no organomegaly, bowel sounds present all 4 quadrants, no CVAT tenderness Course Course Emergency Course: Portions of this record may have been created with voice recognition software. Level of Care: Express Care Visit Vital Signs Vital signs: Vital Signs Temperature 36.7 C 12/09/21 13:53 Pulse Rate 79 12/09/21 13:53 Respiratory Rate 18 12/09/21 13:53 Blood Pressure 123/79 12/09/21 13:53 Pulse Oximetry 100 12/09/21 13:53 Oxygen Delivery Room Air 12/09/21 13:53 Temperature 36.7 C 12/09/21 13:53 Pulse Rate 79 12/09/21 13:53 Respiratory Rate 18 12/09/21 13:53 Blood Pressure 123/79 12/09/21 13:53 Pulse Oximetry 100 12/09/21 13:53 Oxygen Delivery Room Air 12/09/21 13:53 Vital signs reviewed MDM - URI/Sore Throat MDM Narrative Medical decision making narrative: At the time of the patient is resting comfortably on the exam table. C
== END 2021-12-09 15:06 | disposition home or self-care (01) ==
PROVIDERS: Emergency Provider Nurse Practitioner Family
DX: K52.9 Noninfective gastroenteritis and colitis, unspecified (principal); Z20.822 Contact with and (suspected) exposure to COVID-19; F17.219 Nicotine dependence, cigarettes, with unspecified nicotine-induced disorders
CPT/HCPCS: 87426; 87804; 99213; C9803; G0463

== ENCOUNTER 2021-12-29 13:39 | Emergency (ER) | payer OTHER, SELFPAY ==
--- NOTE | 2021-12-29 13:41 | ED.GENADULT ---
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 Patient states that she woke up with severe menstrual cramps, feels better now. Related Data Home Medications Medication Instructions Recorded Confirmed ferrous sulfate 325 mg (65 mg 325 mg PO DIRECTED 10/31/21 12/29/21 iron) tablet drospirenone (contraceptive) 4 mg 1 tablet PO DAILY 12/29/21 12/29/21 (28) tablet (Slynd) Allergies Allergy/AdvReac Type Severity Reaction Status Date / Time No Known Allergies Allergy Verified 12/29/21 13:55 Review of Systems Review of Systems: All systems reviewed & are unremarkable except as noted in HPI and below Constitutional: Constitutional: Reports no additional constitutional complaints, Denies chills and Denies fever(s) Eyes: Eyes: Reports no additional eye complaints ENT: Reports system reviewed and no additional complaints, except as documented Cardiovascular: Cardiovascular: Reports no additional cardiovascular complaints Respiratory: Respiratory: Reports no additional respiratory complaints Gastrointestinal: Gastrointestinal: Reports as per HPI Musculoskeletal: Musculoskeletal: Reports no additional musculoskeletal complaints Integumentary/Breasts: Skin/Breast: Reports system reviewed and no additional complaints, except as docu Neurologic: Reports system reviewed and no additional complaints, except as documented Psychiatric: Psychiatric: Reports no additional psychiatric complaints Allergic/Immunologic: Allergic/Immunologic: Reports no additional allergic/immunologic complaints [facility] Past Medical History Medical History No pertinent past medical history Surgical History Surgical History H/O hernia repair Social History Social History Smoking status: Current every day smoker Tobacco type: cigarettes Substance use: never Gender identity (if verbalized by the patient): Female Comments At the time of my signature, I reviewed and agree with the nursing past medical, surgical, social, and family history. There is no relevant family history pertinent to the patient complaint. Exam Const: General: healthy appearing, comfortable, no acute distress, well developed, alert and well nourished Nutritional Appearance: well nourished Orientation/consciousness: patient oriented x3 Limitations: no limitations HENMT: Head: normal to inspection Ears: external ears normal Face/Nose/Sinus: Normal external nose present Face and sinus: normal facial exam and sinuses nontender Mouth: Yes Normal oral and palatal mucosa present, Yes lip normal and Yes moist mucous membranes Eyes: General: appearance normal, both eyes and all related structures Conjunctivae: conjunctivae normal Pupils: Equal, round and reactive pupils present Neck: Neck: normal visual inspection, full ROM, no lymphadenopathy and no meningeal signs Chest: Chest palpation & inspection: normal inspection of the chest Resp: Effort & Inspection: normal respiratory effort and no use of accessory muscles Auscultation: clear to auscultation bilaterally, no crackles, no rales, no rhonchi and no wheezes Cardio: Rate: regular rate Rhythm: regular rhythm GI: GI Palp: Yes Soft to palpation and No Tenderness to palpation present (GI) Back/Spine/Pelvis: Cervical Spine: cervical ROM normal and No Cervical spine tenderness Thoracic/Lumbar Spine: thoracic and lumbar spine normal to inspection and thoraco-lumbar ROM normal Skin: General skin exam: normal color
[2021-12-29 13:47] VITALS: BP 117/67; PULSE 91; RESP 18; TEMP 36.6; O2SAT 97
== END 2021-12-29 13:58 | disposition home or self-care (01) ==
PROVIDERS: Emergency Provider Nurse Practitioner
DX: N94.6 Dysmenorrhea, unspecified (principal); F17.210 Nicotine dependence, cigarettes, uncomplicated
CPT/HCPCS: 99213; G0463

== ENCOUNTER 2022-01-23 15:37 | Emergency (ER) | payer OTHER, SELFPAY ==
[2022-01-23 15:53] VITALS: BP 134/86; PULSE 86; RESP 16; TEMP 36; O2SAT 99
--- NOTE | 2022-01-23 15:55 | ED.GENADULT ---
HPI - General Adult General Chief complaint: Headache Stated complaint: franco Time Seen by Provider: 01/23/22 15:55 Source: patient, RN notes reviewed and old records reviewed Mode of arrival: ambulatory Limitations: no limitations History of Present Illness HPI narrative: 31-year-old female presents to the [facility] with complaints of waking up with a headache this morning. He rested and took her migraine medication. States that she called in sick to work and needs a note. States she is feeling fine without fevers, nausea, vomiting or headache while sitting in room. Related Data Home Medications Medication Instructions Recorded Confirmed ferrous sulfate 325 mg (65 mg 325 mg PO DIRECTED 10/31/21 01/23/22 iron) tablet drospirenone (contraceptive) 4 mg 1 tablet PO DAILY 12/29/21 01/23/22 (28) tablet (Slynd) Allergies Allergy/AdvReac Type Severity Reaction Status Date / Time No Known Allergies Allergy Verified 12/29/21 13:55 Review of Systems Review of Systems: All systems reviewed & are unremarkable except as noted in HPI and below Constitutional: Constitutional: Reports no additional constitutional complaints Eyes: Eyes: Reports no additional eye complaints ENT: Reports system reviewed and no additional complaints, except as documented Cardiovascular: Cardiovascular: Reports no additional cardiovascular complaints, Denies chest pain and Denies dyspnea Respiratory: Respiratory: Reports no additional respiratory complaints, Denies chest congestion, Denies cough and Denies dyspnea Gastrointestinal: Gastrointestinal: Reports no additional gastrointestinal complaints, Denies abdominal pain, Denies nausea and Denies vomiting Musculoskeletal: Musculoskeletal: Reports no additional musculoskeletal complaints Integumentary/Breasts: Skin/Breast: Reports system reviewed and no additional complaints, except as docu Neurologic: Reports as per HPI and Reports headache(s) Psychiatric: Psychiatric: Reports no additional psychiatric complaints Allergic/Immunologic: Allergic/Immunologic: Reports no additional allergic/immunologic complaints PMFSH Past Medical History Medical History No pertinent past medical history Surgical History Surgical History H/O hernia repair Social History Social History Smoking status: Current every day smoker Tobacco type: cigarettes Substance use: never Gender identity (if verbalized by the patient): Female Comments At the time of my signature, I reviewed and agree with the nursing past medical, surgical, social, and family history. There is no relevant family history pertinent to the patient complaint. Exam Const: General: cooperative, healthy appearing, comfortable, no acute distress, well developed, alert and well nourished Nutritional Appearance: well nourished Orientation/consciousness: patient oriented x3 Limitations: no limitations HENMT: Head: normal to inspection Ears: hearing grossly normal bilaterally and external ears normal Face/Nose/Sinus: Normal external nose present, Normal nares present, Normal nasal mucous membranes and turbinates present and normal facial exam Face and sinus: normal facial exam Mouth: Yes Normal oral and palatal mucosa present, Yes lip normal and Yes moist mucous membranes Throat: posterior oropharynx normal and uvula midline Eyes: General: appearance normal, both eyes and all related structures Alignment and Position: alignment normal Periorbital: periorbital findings normal Conjunctivae: conjunctivae normal Pupils: Equal, round and reactive pupils present EOM: EOMs intact bilaterally Neck: Neck: normal visual inspection, full ROM, no lymphadenopathy and no meningeal signs Chest: Chest palpation & inspection: normal inspection of the chest Resp: Effort & Insp
== END 2022-01-23 16:04 | disposition home or self-care (01) ==
PROVIDERS: Emergency Provider Nurse Practitioner
DX: R51.9 Headache, unspecified (principal); F17.210 Nicotine dependence, cigarettes, uncomplicated
CPT/HCPCS: 99213; G0463

== ENCOUNTER 2022-01-27 17:13 | Emergency (ER) | payer OTHER, SELFPAY ==
--- NOTE | 2022-01-27 17:23 | ED.URI ---
HPI - URI/Sore Throat General Chief Complaint: Upper Respiratory Infection Stated Complaint: uri Time Seen by Provider: 01/27/22 17:23 Source: patient, RN notes reviewed and old records reviewed Mode of arrival: ambulatory Limitations: no limitations History of Present Illness HPI Narrative: 31-year-old female presents to the [facility] with an upper respiratory infection since Saturday, 3 days. Has taken multiple [id number] products, still not feeling well. Related Data Home Medications Medication Instructions Recorded Confirmed ferrous sulfate 325 mg (65 mg 325 mg PO DIRECTED 10/31/21 01/27/22 iron) tablet drospirenone (contraceptive) 4 mg 1 tablet PO DAILY 12/29/21 01/27/22 (28) tablet (Slynd) Allergies Allergy/AdvReac Type Severity Reaction Status Date / Time No Known Allergies Allergy Verified 01/27/22 17:26 Review of Systems Review of Systems: All systems reviewed & are unremarkable except as noted in HPI and below Constitutional: Constitutional: Reports as per HPI, Reports body ache(s) and Reports chills Eyes: Eyes: Reports no additional eye complaints ENT: Reports as per HPI and Reports nasal congestion Cardiovascular: Cardiovascular: Reports no additional cardiovascular complaints, Denies chest pain and Denies dyspnea Respiratory: Respiratory: Reports no additional respiratory complaints, Denies chest congestion, Denies cough and Denies dyspnea Gastrointestinal: Gastrointestinal: Reports no additional gastrointestinal complaints, Denies abdominal pain, Denies nausea and Denies vomiting Musculoskeletal: Musculoskeletal: Reports no additional musculoskeletal complaints Integumentary/Breasts: Skin/Breast: Reports system reviewed and no additional complaints, except as docu Neurologic: Reports system reviewed and no additional complaints, except as documented Psychiatric: Psychiatric: Reports no additional psychiatric complaints Allergic/Immunologic: Allergic/Immunologic: Reports no additional allergic/immunologic complaints PMFSH Past Medical History Medical History No pertinent past medical history Surgical History Surgical History H/O hernia repair Social History Social History Smoking status: Current every day smoker Tobacco type: cigarettes Substance use: never Gender identity (if verbalized by the patient): Female Comments At the time of my signature, I reviewed and agree with the nursing past medical, surgical, social, and family history. There is no relevant family history pertinent to the patient complaint. Exam Const: General: cooperative, no acute distress, well developed, alert, ill appearing acutely (mild), uncomfortable and well nourished Nutritional Appearance: well nourished Orientation/consciousness: patient oriented x3 Limitations: no limitations HENMT: Head: normal to inspection Ears: hearing grossly normal bilaterally and external ears normal Face/Nose/Sinus: Normal external nose present, Normal nares present, Normal nasal mucous membranes and turbinates present and normal facial exam Face and sinus: normal facial exam Mouth: Yes Normal oral and palatal mucosa present, Yes lip normal and Yes moist mucous membranes Throat: posterior oropharynx normal and uvula midline Eyes: General: appearance normal, both eyes and all related structures Alignment and Position: alignment normal Periorbital: periorbital findings normal Conjunctivae: conjunctivae normal Pupils: Equal, round and reactive pupils present EOM: EOMs intact bilaterally Neck: Neck: normal visual inspection, full ROM, no lymphadenopathy and no meningeal signs Chest: Chest palpation & inspection: normal inspection of the chest Resp: Effort & Inspection: normal respiratory effort and able to speak in complete sentences
[2022-01-27 17:24] VITALS: BP 117/62; PULSE 88; RESP 16; TEMP 36.3; O2SAT 99
== END 2022-01-27 17:49 | disposition home or self-care (01) ==
PROVIDERS: Emergency Provider Nurse Practitioner
DX: J06.9 Acute upper respiratory infection, unspecified (principal); Z20.822 Contact with and (suspected) exposure to COVID-19; F17.210 Nicotine dependence, cigarettes, uncomplicated
CPT/HCPCS: 87081; 87426; 87804; 99213; C9803; G0463

== ENCOUNTER 2022-03-03 15:57 | Emergency (ER) | payer OTHER, SELFPAY ==
[2022-03-03 16:07] VITALS: BP 130/59; PULSE 82; RESP 18; TEMP 36.6; O2SAT 100
--- NOTE | 2022-03-03 16:23 | ED.GENADULT ---
HPI - General Adult General Chief complaint: Unspecified Stated complaint: Abdominal Pain Time Seen by Provider: 03/03/22 16:23 Source: patient Mode of arrival: ambulatory Limitations: no limitations History of Present Illness HPI narrative: 31-year-old female presents needing work note. Reports yesterday at work at [employer] her boss made her hamburgers and she put too many onions on them and patient became nauseated and vomiting. Patient states that she left work due to being sick. States she felt nauseated this a.m. so she called into work. Her boss is requesting that she bring a note for when she can return to work. Patient states that she is now feeling completely better and is heading to her 2nd job. She no longer has any nausea. She states she has had a similar episode from eating Onions in the past. All systems reviewed and negative except as noted above. Related Data Home Medications Medication Instructions Recorded Confirmed ferrous sulfate 325 mg (65 mg 325 mg PO DIRECTED 10/31/21 03/03/22 iron) tablet drospirenone (contraceptive) 4 mg 1 tablet PO DAILY 12/29/21 03/03/22 (28) tablet (Slynd) ondansetron 4 mg disintegrating mg 03/03/22 03/03/22 tablet Allergies Allergy/AdvReac Type Severity Reaction Status Date / Time No Known Allergies Allergy Verified 03/03/22 16:06 Review of Systems Review of Systems: CONSTITUTIONAL: Denies fever, chills, or sweats. EYES: Denies visual changes, redness, or discharge. ENT: Denies rhinorrhea, congestion, sore throat, or otalgia. CARDIOVASCULAR: Denies chest pain, palpitations, or edema. RESPIRATORY: Denies cough or dyspnea. GASTROINTESTINAL: Denies abdominal pain, nausea, vomiting, or diarrhea. GENITOURINARY: Denies dysuria or hematuria. SKIN: Denies rash or itching. MUSCULOSKELETAL: Denies back pain, joint pain, or myalgia. NEUROLOGIC: Denies headache, numbness, or weakness. PSYCHIATRIC: Denies anxiety or depression. All other systems reviewed are negative, except as documented in HPI. [facility] Past Medical History Medical History No pertinent past medical history Surgical History Surgical History H/O hernia repair Social History Social History Smoking status: Current every day smoker Tobacco type: cigarettes Substance use: never Living arrangements: with family Gender identity (if verbalized by the patient): Female Comments At time of signature, agree with nursing past medical, surgical, social and family history. There is no relevant family history pertinent to the presenting complaint. Exam Narrative: GENERAL: This is a well-nourished, well-developed patient, in no apparent distress. HEAD: normocephalic, atraumatic. EYES: PERRL. Sclera clear/white. Vision is grossly intact. EARS: External ears normal NOSE: External nose normal NECK: Neck supple, non-tender without lymphadenopathy, masses or thyromegaly. CARDIOVASCULAR: Regular rate and rhythm without murmurs, gallops, or rubs. RESPIRATORY: Clear to auscultation. Breath sounds equal bilaterally. No wheezes, rales, or rhonchi. GASTROINTESTINAL: Abdomen soft, non-tender, nondistended. Bowel sounds are active. No hepato-splenomegaly, or palpable masses. No guarding. SKIN: warm, Dry, intact with no suspicious lesions or rash, good texture and turgor. NEURO: awake, alert, and oriented to person, place and time. There were no obvious focal neurologic abnormalities. EXTREMITIES: No joint tenderness, effusion, or edema noted. Course Course Level of Care: Express Care Visit Vital Signs Vital signs: Vital Signs Temperature 36.6 C 03/03/22 16:07 Pulse Rate 82 03/03/22 16:07 Respiratory Rate 18 03/03/22 16:07 Blood Pressure 130/59 L 03/03/22 16:07 Pulse Oximetry 100 03/03/22 16:07 Oxygen Deliver
== END 2022-03-03 16:28 | disposition home or self-care (01) ==
PROVIDERS: Emergency Provider Nurse Practitioner Family
DX: B34.9 Viral infection, unspecified (principal); F17.210 Nicotine dependence, cigarettes, uncomplicated
CPT/HCPCS: 99211; G0463

== ENCOUNTER 2022-04-03 14:22 | Emergency (ER) | payer OTHER, SELFPAY ==
[2022-04-03 14:34] VITALS: BP 118/60; PULSE 83; RESP 18; TEMP 36.4; O2SAT 100
--- NOTE | 2022-04-03 14:51 | ED.GENADULT ---
HPI - General Adult General Chief complaint: Dizziness Stated complaint: Dizziness Time Seen by Provider: 04/03/22 14:51 Source: patient Mode of arrival: ambulatory Limitations: no limitations History of Present Illness HPI narrative: 31-year-old female presents for a work note. States she works 2 jobs and she is exhausted. She also reports she has intermittently been dizzy. Plans see her primary care physician regarding symptoms. History of anemia. Reports recent were normal. All Systems reviewed and negative except as noted above. Related Data Home Medications Medication Instructions Recorded Confirmed ferrous sulfate 325 mg (65 mg 325 mg PO DIRECTED 10/31/21 04/03/22 iron) tablet drospirenone (contraceptive) 4 mg 1 tablet PO DAILY 12/29/21 04/03/22 (28) tablet (Slynd) naproxen 500 mg tablet 500 mg DIRECTED 04/03/22 04/03/22 Allergies Allergy/AdvReac Type Severity Reaction Status Date / Time No Known Allergies Allergy Verified 03/03/22 16:06 Review of Systems Review of Systems: CONSTITUTIONAL: Denies fever, chills, or sweats. EYES: Denies visual changes, redness, or discharge. ENT: Denies rhinorrhea, congestion, sore throat, or otalgia. CARDIOVASCULAR: Denies chest pain, palpitations, or edema. RESPIRATORY: Denies cough or dyspnea. GASTROINTESTINAL: Denies abdominal pain, nausea, vomiting, or diarrhea. GENITOURINARY: Denies dysuria or hematuria. SKIN: Denies rash or itching. MUSCULOSKELETAL: Denies back pain, joint pain, or myalgia. NEUROLOGIC: Denies headache, numbness, or weakness. Reports dizziness pain PSYCHIATRIC: Denies anxiety or depression. All other systems reviewed are negative, except as documented in HPI. [facility] Past Medical History Medical History No pertinent past medical history Surgical History Surgical History H/O hernia repair Social History Social History Smoking status: Current every day smoker Tobacco type: cigarettes Substance use: never Living arrangements: with family Gender identity (if verbalized by the patient): Female Comments At time of signature, agree with nursing past medical, surgical, social and family history. There is no relevant family history pertinent to the presenting complaint. Exam Narrative: GENERAL: This is a well-nourished, well-developed patient, in no apparent distress. HEAD: normocephalic, atraumatic. EYES: PERRL. Sclera clear/white. Vision is grossly intact. EARS: External ears normal, auditory canals clear and without drainage, fluid bilateral TMs, mild erythema left TM. NOSE: External nose normal with Congestion, drainage, erythema and swelling to both nares. THROAT: Mucous membranes moist, posterior pharynx clear. Clear postnasal drainage noted. NECK: Neck supple, non-tender without lymphadenopathy, masses or thyromegaly. CARDIOVASCULAR: Regular rate and rhythm without murmurs, gallops, or rubs. RESPIRATORY: Clear to auscultation. Breath sounds equal bilaterally. No wheezes, rales, or rhonchi. SKIN: warm, Dry, intact with no suspicious lesions or rash, good texture and turgor. NEURO: awake, alert, and oriented to person, place and time. There were no obvious focal neurologic abnormalities. EXTREMITIES: No joint tenderness, effusion, or edema noted. Course Course Level of Care: Express Care Visit Vital Signs Vital signs: Vital Signs Temperature 36.4 C 04/03/22 14:34 Pulse Rate 83 04/03/22 14:34 Respiratory Rate 18 04/03/22 14:34 Blood Pressure 118/60 04/03/22 14:34 Pulse Oximetry 100 04/03/22 14:34 Oxygen Delivery Room Air 04/03/22 14:34 Temperature 36.4 C 04/03/22 14:34 Pulse Rate 83 04/03/22 14:34 Respiratory Rate 18 04/03/22 14:34 Blood Pressure 118/60 04/03/22 14:34 Pulse Oximetry 100 04/03/22 14:3
== END 2022-04-03 15:04 | disposition home or self-care (01) ==
PROVIDERS: Emergency Provider Nurse Practitioner Family
DX: J01.90 Acute sinusitis, unspecified (principal); R42 Dizziness and giddiness; F17.210 Nicotine dependence, cigarettes, uncomplicated; D64.9 Anemia, unspecified
CPT/HCPCS: 99213; G0463

== ENCOUNTER 2022-05-01 14:09 | Emergency (ER) | payer OTHER, SELFPAY ==
[2022-05-01 14:16] VITALS: BP 121/77; PULSE 86; RESP 18; TEMP 36.6; O2SAT 100
--- NOTE | 2022-05-01 14:19 | ED.GENADULT ---
HPI - General Adult General Chief complaint: Skin/Abscess/Foreign Body Stated complaint: uri Time Seen by Provider: 05/01/22 14:19 Source: patient, RN notes reviewed and old records reviewed Mode of arrival: ambulatory Limitations: no limitations History of Present Illness HPI narrative: 31-year-old female presents to the [facility] with concerns over an infected tattoo she got it is 8 days ago. Areas of it is red, swollen Patient states that she got attached to a days ago from someone's house on the right forearm. Onset (ago): day(s) (8) Related Data Home Medications Medication Instructions Recorded Confirmed ferrous sulfate 325 mg (65 mg 325 mg PO DIRECTED 10/31/21 04/03/22 iron) tablet drospirenone (contraceptive) 4 mg 1 tablet PO DAILY 12/29/21 04/03/22 (28) tablet (Slynd) naproxen 500 mg tablet 500 mg DIRECTED 04/03/22 04/03/22 Allergies Allergy/AdvReac Type Severity Reaction Status Date / Time No Known Allergies Allergy Verified 05/01/22 14:15 Review of Systems Review of Systems: All systems reviewed & are unremarkable except as noted in HPI and below Constitutional: Constitutional: Reports no additional constitutional complaints Eyes: Eyes: Reports no additional eye complaints ENT: Reports system reviewed and no additional complaints, except as documented Cardiovascular: Cardiovascular: Reports no additional cardiovascular complaints, Denies chest pain and Denies dyspnea Respiratory: Respiratory: Reports no additional respiratory complaints, Denies chest congestion, Denies cough and Denies dyspnea Gastrointestinal: Gastrointestinal: Reports no additional gastrointestinal complaints, Denies abdominal pain, Denies nausea and Denies vomiting Musculoskeletal: Musculoskeletal: Reports no additional musculoskeletal complaints Integumentary/Breasts: Skin/Breast: Reports as per HPI Neurologic: Reports system reviewed and no additional complaints, except as documented Psychiatric: Psychiatric: Reports no additional psychiatric complaints Allergic/Immunologic: Allergic/Immunologic: Reports no additional allergic/immunologic complaints PMF Past Medical History Medical History No pertinent past medical history Surgical History Surgical History H/O hernia repair Social History Social History Smoking status: Current every day smoker Tobacco type: cigarettes Substance use: never Living arrangements: with family Gender identity (if verbalized by the patient): Female Comments At the time of my signature, I reviewed and agree with the nursing past medical, surgical, social, and family history. There is no relevant family history pertinent to the patient complaint. Exam Const: General: cooperative, healthy appearing, comfortable, no acute distress, well developed, alert and well nourished Nutritional Appearance: well nourished Orientation/consciousness: patient oriented x3 Limitations: no limitations HENMT: Head: normal to inspection Ears: hearing grossly normal bilaterally and external ears normal Face/Nose/Sinus: Normal external nose present, Normal nares present, Normal nasal mucous membranes and turbinates present and normal facial exam Face and sinus: normal facial exam Mouth: Yes Normal oral and palatal mucosa present, Yes lip normal and Yes moist mucous membranes Throat: posterior oropharynx normal and uvula midline Eyes: General: appearance normal, both eyes and all related structures Alignment and Position: alignment normal Periorbital: periorbital findings normal Conjunctivae: conjunctivae normal Pupils: Equal, round and reactive pupils present EOM: EOMs intact bilaterally Neck: Neck: normal visual inspection, full ROM, no lymphadenopathy and no meningeal signs Chest: Chest palpation & inspection: nor
== END 2022-05-01 14:38 | disposition home or self-care (01) ==
PROVIDERS: Emergency Provider Nurse Practitioner
DX: L08.9 Local infection of the skin and subcutaneous tissue, unspecified (principal); F17.210 Nicotine dependence, cigarettes, uncomplicated
CPT/HCPCS: 99211; G0463

== ENCOUNTER 2022-06-04 15:30 | Emergency (ER) | payer OTHER, SELFPAY ==
[2022-06-04 15:38] VITALS: BP 121/76; PULSE 68; RESP 16; TEMP 36.3; O2SAT 100
--- NOTE | 2022-06-04 15:46 | ED.GENADULT ---
HPI - General Adult General Chief complaint: Unspecified Stated complaint: Ankle Pain Time Seen by Provider: 06/04/22 15:40 Source: patient Mode of arrival: ambulatory Limitations: no limitations History of Present Illness HPI narrative: 31-year-old female presents with complaint of pain to left ankle for the past 2 weeks. Reports that the pain shoots up into her mcclain and is a burning pain. Worse when it she has were work. 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 Wears tennis shoes while at work. States when pain 1st started she was wearing her Crocs a lot. It was warm outside shoe she was outside walking more. Does not use the strap on her Crocs and that goes behind the heel. Range of motion And distal neurovascularly intact. No swelling noted. patient also reports that she needs to notes today for work as she has 2 jobs. All systems reviewed and negative except as noted above. Related Data Home Medications Medication Instructions Recorded Confirmed ferrous sulfate 325 mg (65 mg 325 mg PO DIRECTED 10/31/21 06/04/22 iron) tablet drospirenone (contraceptive) 4 mg 1 tablet PO DAILY 12/29/21 06/04/22 (28) tablet (Slynd) naproxen 500 mg tablet 500 mg DIRECTED 04/03/22 06/04/22 Allergies Allergy/AdvReac Type Severity Reaction Status Date / Time No Known Allergies Allergy Verified 05/01/22 14:15 Review of Systems Review of Systems: CONSTITUTIONAL: Denies fever, chills, or sweats. EYES: Denies visual changes, redness, or discharge. ENT: Denies rhinorrhea, congestion, sore throat, or otalgia. CARDIOVASCULAR: Denies chest pain, palpitations, or edema. RESPIRATORY: Denies cough or dyspnea. GASTROINTESTINAL: Denies abdominal pain, nausea, vomiting, or diarrhea. GENITOURINARY: Denies dysuria or hematuria. SKIN: Denies rash or itching. MUSCULOSKELETAL: Reports pain to left ankle. NEUROLOGIC: Denies headache, numbness, or weakness. PSYCHIATRIC: Denies anxiety or depression. All other systems reviewed are negative, except as documented in HPI. [facility] Past Medical History Medical History No pertinent past medical history Surgical History Surgical History H/O hernia repair Social History Social History Smoking status: Current every day smoker Tobacco type: cigarettes Substance use: never Living arrangements: with family Gender identity (if verbalized by the patient): Female Comments At time of signature, agree with nursing past medical, surgical, social and family history. There is no relevant family history pertinent to the presenting complaint. Exam Narrative: GENERAL: This is a well-nourished, well-developed patient, in no apparent distress. HEAD: normocephalic, atraumatic. EYES: PERRL. Sclera clear/white. Vision is grossly intact. EARS: External ears normal NOSE: External nose normal NECK: Neck supple, non-tender without lymphadenopathy, masses or thyromegaly. CARDIOVASCULAR: Regular rate and rhythm without murmurs, gallops, or rubs. RESPIRATORY: Clear to auscultation. Breath sounds equal bilaterally. No wheezes, rales, or rhonchi. SKIN: warm, Dry, intact with no suspicious lesions or rash, good texture and turgor. NEURO: awake, alert, and oriented to person, place and time. There were no obvious focal neurologic abnormalities. EXTREMITIES: Tenderness to and here aspect left ankle. No swelling. Range of motion normal. No instability noted. No warmth or redness concerning for infection. Course Course Level of Care: Express Care Visit Vital Signs Vital signs: Vital Signs Temperature 36.3 C L 06/04/22 15:38 Pulse Rate 68 06/04/22 15:38 Respiratory Rate 16 06/04/22 15:38 Blood Pressure 121/76 06/04/22 15:38 Pulse Oximetry 100 06/04/22 15:38 Oxygen Delivery Room Air 06/04/22 15:38
== END 2022-06-04 15:50 | disposition home or self-care (01) ==
PROVIDERS: Emergency Provider Nurse Practitioner Family
DX: M77.52 Other enthesopathy of left foot and ankle (principal); F17.210 Nicotine dependence, cigarettes, uncomplicated
CPT/HCPCS: 99213; G0463

== ENCOUNTER 2022-06-14 16:50 | Emergency (ER) | payer OTHER, SELFPAY ==
--- NOTE | 2022-06-14 16:53 | ED.EXTPRO ---
HPI - Extremity Problem General Chief complaint: Extremity Injury, Lower Stated complaint: Left Ankle Pain Time Seen by Provider: 06/14/22 17:10 Source: patient and RN notes reviewed Mode of arrival: ambulatory Limitations: no limitations History of Present Illness HPI Narrative: 31-year-old female presents concern for left ankle pain. She reports pain in the posterior ankle that she has had for about a month. She reports she was seen previously for this, she was told she had tendinitis. Reports she has been trying to take the naproxen but I gave her stomachache. She reports she does not currently have pain, she has pain when she has been on her feet a lot. She denies any swelling, bruising, redness, warmth. MD Complaint: extremity pain Related Data Home Medications Medication Instructions Recorded Confirmed drospirenone (contraceptive) 4 mg 1 tablet PO DAILY 12/29/21 06/04/22 (28) tablet (Slynd) naproxen 500 mg tablet 500 mg DIRECTED 04/03/22 06/04/22 Allergies Allergy/AdvReac Type Severity Reaction Status Date / Time No Known Allergies Allergy Verified 06/14/22 16:58 Review of Systems Review of Systems: CONSTITUTIONAL: Denies malaise, chills, sweats, or fever. SKIN: Denies rash or itching, open skin, laceration, abrasion, redness, warmth, swelling. MUSCULOSKELETAL: Reports left ankle pain NEUROLOGIC: Denies numbness, weakness All systems reviewed & are unremarkable except as noted in HPI and below PMFSH Past Medical History Medical History No pertinent past medical history Surgical History Surgical History H/O hernia repair Social History Social History Smoking status: Current every day smoker Tobacco type: cigarettes Substance use: never Living arrangements: with family Gender identity (if verbalized by the patient): Female Comments At time of signature, agree with nursing past medical, surgical, social and family history. There is no relevant family history pertinent to the presenting complaint Exam Narrative: GENERAL: Well-appearing, well-nourished, and in no acute distress. HEAD: Normocephalic, atraumatic. EYES: PERRLA, conjunctivae clear NECK: Supple. CHEST: Speaks in full sentences. No respiratory distress. HEART: Regular rate and rhythm. Normal and equal peripheral pulses. EXTREMITIES: Left ankle, foot have grossly normal strength and sensation, normal range of motion. No edema or ecchymosis. 5/5 strength with ankle and digit flexion and extension. Normal sensation with sensitivity to light touch and pain. No point tenderness. No open wounds, no skin tenting, no devitalized tissue or atrophy, no trophic changes, no obvious deformity, alignment normal, nearby joints and structures intact. Distal pulses palpable and equal bilaterally, skin warm, dry, pink. Capillary refill less than 3 seconds. SKIN: Warm, dry, no rash. NEURO: Alert and oriented x3. PSYCH: Normal mood and affect Course Course Emergency Course: Patient is aware of diagnosis, understands and agrees to treatment plan. Anticipatory guidance given. Patient agrees to follow-up as directed and is aware of reasons to seek care at the emergency department. Portions of this record may have been created with voice recognition software Level of Care: Express Care Visit Vital Signs Vital signs: Reviewed. MDM - Extremity (Nontraumatic) MDM Narrative Medical decision making narrative: Patients pain is consistent with musculoskeletal etiology. No signs of neurological or vascular compromise on exam. Compartments and tissues are soft without signs of compartment syndrome. Pain is felt appropriate for further evaluation on an outpatient basis. Critical Care Time Critical Care Time Critical Care Time: No Discharge Plan Discharge Clinical Impre
[2022-06-14 16:54] VITALS: BP 121/68; PULSE 61; RESP 16; TEMP 36.6; O2SAT 100
[2022-06-14 17:00] VITALS: BP 121/68; PULSE 61; RESP 16; TEMP 36.6; O2SAT 100
== END 2022-06-14 17:20 | disposition home or self-care (01) ==
PROVIDERS: Emergency Provider Nurse Practitioner
DX: M76.62 Achilles tendinitis, left leg (principal); F17.210 Nicotine dependence, cigarettes, uncomplicated
CPT/HCPCS: 99212; G0463

== ENCOUNTER 2022-06-19 12:23 | Emergency (ER) | payer OTHER, SELFPAY ==
--- NOTE | 2022-06-19 12:27 | ED.GENADULT ---
HPI - General Adult General Chief complaint: Extremity Injury, Lower Stated complaint: Left Ankle Injury Time Seen by Provider: 06/19/22 12:27 Source: patient, RN notes reviewed and old records reviewed Mode of arrival: ambulatory Limitations: no limitations History of Present Illness HPI narrative: 31-year-old female presents to the [facility] with left ankle lateral pain. States has been going to couple weeks. Has been evaluated in the past, diagnosed with tendinitis. States the pain is pretty random. States that she woke up in pain and called in sick to work. Requesting a work note Has taken ibuprofen Related Data Home Medications Medication Instructions Recorded Confirmed drospirenone (contraceptive) 4 mg 1 tablet PO DAILY 12/29/21 06/19/22 (28) tablet (Slynd) naproxen 500 mg tablet 500 mg DIRECTED 04/03/22 06/19/22 Allergies Allergy/AdvReac Type Severity Reaction Status Date / Time No Known Allergies Allergy Verified 06/19/22 12:27 Review of Systems Review of Systems: All systems reviewed & are unremarkable except as noted in HPI and below Constitutional: Constitutional: Reports no additional constitutional complaints Eyes: Eyes: Reports no additional eye complaints ENT: Reports system reviewed and no additional complaints, except as documented Cardiovascular: Cardiovascular: Reports no additional cardiovascular complaints, Denies chest pain and Denies dyspnea Respiratory: Respiratory: Reports no additional respiratory complaints, Denies chest congestion, Denies cough and Denies dyspnea Gastrointestinal: Gastrointestinal: Reports no additional gastrointestinal complaints, Denies abdominal pain, Denies nausea and Denies vomiting Musculoskeletal: Musculoskeletal: Reports as per HPI, Reports arthralgias (Left ankle), Denies joint swelling, Denies muscle cramps and Denies muscle weakness Integumentary/Breasts: Skin/Breast: Reports system reviewed and no additional complaints, except as docu Neurologic: Reports system reviewed and no additional complaints, except as documented Psychiatric: Psychiatric: Reports no additional psychiatric complaints Allergic/Immunologic: Allergic/Immunologic: Reports no additional allergic/immunologic complaints PMFSH Past Medical History Medical History No pertinent past medical history Surgical History Surgical History H/O hernia repair Social History Social History (Reviewed 06/19/22 @ 12:46 by AMANDA Leal Smoking status: Current every day smoker Tobacco type: cigarettes Substance use: never Living arrangements: with family Gender identity (if verbalized by the patient): Female Comments At the time of my signature, I reviewed and agree with the nursing past medical, surgical, social, and family history. There is no relevant family history pertinent to the patient complaint. Exam Const: General: cooperative, healthy appearing, comfortable, no acute distress, well developed, alert and well nourished Nutritional Appearance: well nourished Orientation/consciousness: patient oriented x3 Limitations: no limitations HENMT: Head: normal to inspection Ears: hearing grossly normal bilaterally and external ears normal Face/Nose/Sinus: Normal external nose present, Normal nares present, Normal nasal mucous membranes and turbinates present and normal facial exam Face and sinus: normal facial exam Eyes: General: appearance normal, both eyes and all related structures Alignment and Position: alignment normal Periorbital: periorbital findings normal Conjunctivae: conjunctivae normal Pupils: Equal, round and reactive pupils present EOM: EOMs intact bilaterally Neck: Neck: normal visual inspection, full ROM, no lymphadenopathy and no meningeal signs Chest: Chest palpation & inspection: normal inspection of the chest Resp: Effort
[2022-06-19 12:29] VITALS: BP 137/93; PULSE 94; RESP 18; TEMP 36.9; O2SAT 100
== END 2022-06-19 12:45 | disposition home or self-care (01) ==
PROVIDERS: Emergency Provider Nurse Practitioner
DX: M25.572 Pain in left ankle and joints of left foot (principal); F17.210 Nicotine dependence, cigarettes, uncomplicated
CPT/HCPCS: 99212; G0463